=== PATIENT | male | born 1945 | race American Indian/Alaskan Native ===

== ENCOUNTER 2020-06-01 09:19 | Emergency (ER) | payer MEDICARE ==
[2020-06-01] MEDS ORDERED: EPINEPHrine 1 MG/10 ML SYRINGE ONE (09:30)
[2020-06-01] MEDS ORDERED: DEXTROSE 50% IN WATER (25GM) 50 ML SYRINGE IV ONE (09:30)
--- NOTE | 2020-06-01 09:56 | Emergency Department Report ---
ED CPR HPI - General Chief Complaint: Cardiac Arrest/CPR Stated Complaint: CARDIAC ARREST Time Seen by Provider: 06/01/20 09:42 Source: EMS Mode of arrival: Stretcher Limitations: Altered Mental Status, Physical Limitation, Other - History of Present Illness Initial Comments: The patient is a 74-year-old gentleman. He is not known to myself previously. He is brought to the hospital by emergency medical services as out of hospital nontraumatic cardiac arrest. Patient receives with a [place] airway, receiving CPR. He has received multiple rounds of epinephrine. He has been pulseless for over an hour. He has not had a shockable rhythm. EMS has been administering aggressive chest compressions. Upon arrival, patient pulseless, in asystole, pupils dilated and do not react to light CPR and ACLS is continued. Unfortunately, we are not able to obtain pulses. In spite of a prolonged efforts at resuscitation, return of spontaneous circulation not obtainable, and resuscitation efforts were subsequently terminated. The patient's brother was informed. Initial Findings in the Field: no pulse Treatments Prior to Arrival: other airway device, chest compressions, epinephrine mgs # ED Review of Systems ROS: Stated complaint: CARDIAC ARREST Other details as noted in HPI Comment: Unobtainable due to pts medical conditions ED Physical Exam - General Limitations: Altered Mental Status, Physical Limitation, Other General appearance: obtunded - Head Head exam: Present: atraumatic, normocephalic - Eye Eye exam: Present: other (Pupils are dilated and do not react to light) - ENT ENT exam: Present: mucous membranes dry, other (Supraglottic airway in place) - Neck Neck exam: Present: normal inspection - Respiratory Respiratory exam: Absent: normal lung sounds bilaterally (Patient is not breathing), respiratory distress - Cardiovascular Cardiovascular Exam: Absent: regular rate, normal rhythm (The patient is pulseless), systolic murmur, diastolic murmur, rubs, gallop - GI/Abdominal GI/Abdominal exam: Present: other (Feeding tube is in place). Absent: distended - Rectal Rectal exam: Present: deferred - Extremities Exam Extremities exam: Present: normal inspection - Back Exam Back exam: Present: normal inspection - Neurological Exam Neurological exam: Present: altered (Nonverbal, GCS of 3) - Skin Skin exam: Present: warm, dry, intact, normal color. Absent: rash ED Medical Decision Making - Medical Decision Making Differential diagnosis, including but not limited to: Bacteremia, viremia, acute coronary syndrome, pulmonary embolism, sepsis Critical care attestation.: If time is entered above; I have spent that time in minutes in the direct care of this critically ill patient, excluding procedure time. ED Disposition Clinical Impression: Cardiac arrest Disposition: DC-20 Is pt being admited?: No Does the pt Need Aspirin: No Condition: Undetermined
== END 2020-06-01 09:45 ==
LOC: ED 09:19
DX: I46.9 Cardiac arrest, cause unspecified (principal)
CPT/HCPCS: 92950; 99285; J0171